=== PATIENT | male | born 1965 | race Asian ===

== ENCOUNTER 2019-02-23 15:35 | Inpatient (IN) | payer OTHER ==
[~2019-02-23] VITALS: Ht 175.3 cm; Wt 68.6 kg
[2019-02-23 15:57] VITALS: BP_SYST 140
--- NOTE | 2019-02-23 16:02 | NUR ---
Patient triaged and placed in waiting room. Patient appears in no acute distress at this time. Accompanied by , awaiting available bed, and MD notified of need for MSE.
--- NOTE | 2019-02-23 16:09 | NUR ---
Placed in room 02 . Placed on business analyst consultant, blood pressure machine and pulse oximeter. To gown for exam. Side rails up.
[2019-02-23] MEDS ORDERED: MAG HYDROX/AL HYDROX/SIMETH 30 ML, DICYCLOMINE HCL 20 MG, LIDOCAINE VISCOUS 2% 15ML (PO... PO ONE ×3 (16:15)
--- NOTE | 2019-02-23 16:15 | NUR ---
YOLANDA Cantrell at bedside examining patient.
--- NOTE | 2019-02-23 16:19 | NUR ---
Pt AAOx4 ambulated into ED c/o epigastric discomfort and nausea x 3 days everyday after 4pm and after eating. Denies vomiting/diarrhea/chest pain/sob. Skin pink dry and warm, breathing even and unlabored. No other injuries/complaints per pt/noted. Will continue to monitor.
--- NOTE | 2019-02-23 16:25 | NUR ---
MEdication administered. PT tolerated well. No adverse reactions noted.
[2019-02-23 16:38] LABS: BASOPHILS # (AUTO) 0.1 K/uL (0.0-0.2); BASOPHILS % (AUTO) 1.1 % (0.0-2.0); EOSINOPHILS # (AUTO) 0.2 K/uL (0.0-0.4); HEMATOCRIT 41.7 % (36-54); HEMOGLOBIN 14.7 g/dL (14.0-18.0); LYMPHOCYTES # (AUTO) 3.3 K/uL (1.0-5.5); LYMPHOCYTES % (AUTO) 48.2 % (20.5-51.5); MEAN CORPUSCULAR HEMOGLOBIN 32 pg (27-31); MEAN CORPUSCULAR HGB CONC 35 % (32-36); MEAN CORPUSCULAR VOLUME 91 fL (79.0-98.0); MONOCYTES # (AUTO) 0.4 K/uL (0.0-1.0); MONOCYTES % (AUTO) 6.4 % (1.7-9.3); NEUTROPHILS # (AUTO) 2.8 K/uL (1.8-7.7); NEUTROPHILS % (AUTO) 41.3 % (40.0-70.0); PLATELET COUNT (AUTO) 306 K/uL (130-430); RED CELL DISTRIBUTION WIDTH 13.5 % (9.0-15.0); WHITE BLOOD COUNT (AUTO) 6.9 K/uL (4.8-10.8)
[2019-02-23 16:43] LABS: CALCIUM 8.8 mg/dL (8.4-11.0); CREATININE 0.92 mg/dL (0.55-1.30); GLUCOSE 128 mg/dL (70-99); POTASSIUM 4.1 mmol/L (3.5-5.1); UREA NITROGEN, BLOOD 8 mg/dL (8-21)
[2019-02-23 16:47] LABS: ALANINE AMINOTRANSFERASE 59 U/L (12-78); ALBUMIN 4.4 g/dL (3.4-4.8); ASPARTATE AMINOTRANSFERASE 38 U/L (10-37); LIPASE 200 U/L (73-393); TOTAL BILIRUBIN 0.8 mg/dL (0.0-1.0)
[2019-02-23 16:51] LABS: CHLORIDE 98 mmol/L (98-107); SODIUM SERUM 133 mmol/L (136-145)
[2019-02-23 16:52] LABS: ANION GAP < 3 (5-15); GFR AFRICAN AMERICAN 110 mL/min (>90)
--- NOTE | 2019-02-23 17:46 | NUR ---
Patient will be admitted to [facility]. Admitted to Teleemtry unit. Will go to room 124A. Complete and up to date summary report printed. SBAR report to be given at bedside with opportunity for questions.
[2019-02-23] MEDS ORDERED: LISI-209 PO (18:02)
[2019-02-23] MEDS ORDERED: METFORMIN PO (18:02)
[2019-02-23] MEDS ORDERED: LIP20 PO (18:02)
[2019-02-23] MEDS ORDERED: HYDROcodone/ACETAMIN 5-325 MG TAB (NORCO/ VICODIN) PO PRN (19:30)
[2019-02-23] MEDS ORDERED: ACETAMINOPHEN 325 MG TABLET PO PRN (19:30)
[2019-02-23] MEDS ORDERED: ONDANSETRON HCL 4 MG/2 ML VIAL IVP PRN (19:30)
--- NOTE | 2019-02-23 20:42 | NUR ---
Admission Note Received patient from ER with diagnosis of SYMTOMATIC FERMIN CARDIA . Initial Plan of Care discussed-patient verbalized understanding. Family at bedside. Oriented to room, call light, pain management and safety.
[2019-02-23 20:43] VITALS: BP_SYST 109
[2019-02-23] MEDS: HEPARIN SODIUM,PORCINE 5000 UNITS/ML VIAL SUBCUT SCH (21:24)
[2019-02-23] MEDS ORDERED: FLU VACC QS2019-20 36MOS UP/PF 60 MCG/0.5 ML SYRINGE I.M. PRN (22:00)
--- NOTE | 2019-02-23 23:12 | NUR ---
FLU VACCINE administer to left DELT. continue to monitor .
--- NOTE | 2019-02-23 23:52 | NUR ---
URINE COLLECTED & SENT TO LAB .
[2019-02-24 00:11] LABS: BILIRUBIN,URINE NEGATIVE (NEGATIVE); BLOOD, URINE NEGATIVE (NEGATIVE); CLARITY/URINE CLEAR (CLEAR); COLOR,URINE YELLOW (YELLOW); GLUCOSE,URINE TRACE (NEGATIVE); KETONES,URINE NEGATIVE (NEGATIVE); LEUKOCYTE ESTERASE ,URINE NEGATIVE (NEGATIVE); NITRITE, URINE POSITIVE (NEGATIVE); PH,URINE 7.5 (5.0-8.0); PROTEIN URINE 2+ (NEGATIVE)
[2019-02-24 00:18] LABS: BACTERIA,URINE FEW /HPF (None Seen); RBC,URINE 0-3 /HPF (0-3); WBC,URINE 0-3 /HPF (0-3)
[2019-02-24 00:25] LABS: BARBITURATE, URINE NEGATIVE (NEG <=200); BENZODIAZEPINE, URINE NEGATIVE (NEG <=150); CANNABINOID, URINE NEGATIVE (NEG <=50); COCAINE, URINE NEGATIVE (NEG <=150); METHAMPHETAMINES SCREEN,URINE NEGATIVE (NEG <=500); OPIATE, URINE NEGATIVE (NEG <=100); PHENCYCLIDINE SCREEN,URINE NEGATIVE (NEG <=25); UR TRICYCLIC ANTIDEPRESSANTS NEGATIVE (NEG <=300); URINE AMPHETAMINE NEGATIVE (NEG <=500); URINE METHADONE NEGATIVE (NEG <=200); URINE OXYCODONE SCREEN NEGATIVE (NEG <=100); URINE PROPOXYPHENE SCREEN NEGATIVE (NEG <=300)
--- NOTE | 2019-02-24 02:12 | NUR ---
Hourly Rounding patient Resting is verbally Responsive call michelle with patient Family also @ the bedside .
[2019-02-24 03:31] VITALS: BP_SYST 121
--- NOTE | 2019-02-24 04:10 | NUR ---
Patient is NPO FOR AM PROCEDURE alert & aware U/S of thee abdomen .
--- NOTE | 2019-02-24 05:12 | NUR ---
CONSULTATION PAGED/CALLED Reason for Consultation: SYMPTOMATIC BRADYCARDIA Person Who was Notified: JOVI Consulting Physician: DR. SOLARES Ordering Physician: DR. GONZALEZ
[2019-02-24 07:14] LABS: BASOPHILS % (AUTO) 0.2 % (0.0-2.0); HEMOGLOBIN 15.1 g/dL (14.0-18.0); MEAN CORPUSCULAR VOLUME 91 fL (79.0-98.0)
[2019-02-24 07:35] LABS: INR 1.1 (0.80-1.20); PROTHROMBIN TIME 10.9 SECS (9.5-12.5)
--- NOTE | 2019-02-24 07:40 | NUR ---
opening note patient is resting in bed, at the bedside, alert and oriented, no signs of distress at this time, educated electronic device monitor light system and plan of care, patient verbalized understanding, no other needs addressed at this time, fall/safety precautions in place, patient NPO at this time for scheduled abdominal ultrasound.
[2019-02-24 07:41] LABS: EOSINOPHILS # (AUTO) 0.3 K/uL (0.0-0.4); EOSINOPHILS % (AUTO) 4.4 % (0.0-4.0); LYMPHOCYTES # (AUTO) 2.7 K/uL (1.0-5.5); LYMPHOCYTES % (AUTO) 46.2 % (20.5-51.5); MEAN CORPUSCULAR HEMOGLOBIN 32 pg (27-31); MEAN CORPUSCULAR HGB CONC 35 % (32-36); MONOCYTES # (AUTO) 0.3 K/uL (0.0-1.0); MONOCYTES % (AUTO) 5.7 % (1.7-9.3); NEUTROPHILS # (AUTO) 2.5 K/uL (1.8-7.7); NEUTROPHILS % (AUTO) 43.5 % (40.0-70.0); PLATELET COUNT (AUTO) 276 K/uL (130-430); RED BLOOD CELL COUNT(AUTO) 4.74 MIL/uL (4.2-6.2); RED CELL DISTRIBUTION WIDTH 13.5 % (9.0-15.0); WHITE BLOOD COUNT (AUTO) 5.7 K/uL (4.8-10.8)
[2019-02-24 07:50] LABS: ANION GAP 5 (5-15); CALCIUM 8.9 mg/dL (8.4-11.0); CHLORIDE 100 mmol/L (98-107); CREATININE 0.88 mg/dL (0.55-1.30); GLUCOSE 158 mg/dL (70-99); PHOSPHORUS 3.7 mg/dL (2.7-4.5); POTASSIUM 4.2 mmol/L (3.5-5.1); SODIUM SERUM 138 mmol/L (136-145); UREA NITROGEN, BLOOD 10 mg/dL (8-21)
[2019-02-24 08:01] VITALS: BP_SYST 116
[2019-02-24 08:01] LABS: THYROID STIMULATING HORMONE 7.02 uIu/mL (0.36-3.74)
[2019-02-24 08:06] LABS: GFR AFRICAN AMERICAN 116 mL/min (>90)
[2019-02-24 08:25] LABS: CHOLESTEROL 134 mg/dL (<200); HDL CHOLESTEROL 36 mg/dL (>45); LDL CHOLESTEROL 71 mg/dL (<100); TRIGLYCERIDES 238 mg/dL (30-150)
[2019-02-24] MEDS: ATORVASTATIN 20 MG TABLET PO SCH ×2 (09:00→09:29)
[2019-02-24] MEDS: PANTOPRAZOLE SODIUM 40 MG TAB PO SCH ×2 (09:00→09:29)
[2019-02-24] MEDS ORDERED: DOCUSATE SODIUM 100 MG CAPSULE PO SCH (09:00)
[2019-02-24] MEDS: LISINOPRIL 5 MG TABLET PO SCH ×2 (09:00→09:29)
[2019-02-24] MEDS: metFORMIN HCL 500 MG TABLET PO SCH ×3 (09:29→10:17)
--- NOTE | 2019-02-24 09:30 | NUR ---
Dr Julisa conde came to see patient for consult, per Dr Egan, venita patient NPO and hold meds for now, he wants to talk to primary doctor to see if any other tests should be done while he is still NPO, he explained this to the patient and his and they verbalized understanding. Addendum: 02/24/19 at 0958 by Sandrita Lock RN Dr Laureano, asked her about NPO status, she said it was okay to still give PO medications to patient. Addendum: 02/24/19 at 1004 by Sandrita Lock RN I talked to the patient and informed him that Dr Laureano said he can still take his PO medications, patient stated that he will hold off on them at this time and does not want to take them until his NPO status is taken off.
[2019-02-24] MEDS: HEPARIN SODIUM,PORCINE 5000 UNITS/ML VIAL SUBCUT SCH (09:31)
--- NOTE | 2019-02-24 09:59 | NUR ---
CONSULTATION PAGED/CALLED Reason for Consultation: [] EPIGASTRIC PAIN Person Who was Notified: [] DEIDRE Consulting Physician: [] DR WILLIAM Manuscripts Curator Specialty: [] GI Ordering Physician: [] DR GONZALEZ
[2019-02-24] MEDS ORDERED: PRO40 PO (10:19)
[2019-02-24 10:28] VITALS: BP_SYST 116
--- NOTE | 2019-02-24 10:45 | NUR ---
D/C Patient Patient given medication reconciliation form and D/C instructions. Exit Care provided. Patient verbalized understanding. MD discussed with patient the results and treatment provided. Ambulatory with steady gait for discharge to home. Patient in stable condition, ID band removed. IV catheter removed, intact and dressing applied, no active bleeding. Rx of protonix given. Patient educated on pain management. All belongings sent with patient.
== END 2019-02-24 10:45 | disposition home or self-care (01) | DRG 392 ==
LOC: SED 15:35 → STU 17:43
PROVIDERS: ADMIT Family Medicine; ATTEND Family Medicine
DX: K21.9 Gastro-esophageal reflux disease without esophagitis (principal); E11.9 Type 2 diabetes mellitus without complications; E78.5 Hyperlipidemia, unspecified; R00.1 Bradycardia, unspecified; E02 Subclinical iodine-deficiency hypothyroidism; K31.9 Disease of stomach and duodenum, unspecified; K29.70 Gastritis, unspecified, without bleeding; Z79.899 Other long term (current) drug therapy
CPT/HCPCS: 36415; 71045; 76700-TC; 80048; 80053; 80061; 80307; 81000-TC; 83036; 83690-TC; 83735-TC; 83880; 84100-TC; 84439; 84443-TC; 84484; 85025; 85610-TC; 93005; 93306; 99285; G0378; J1644; J2001